=== PATIENT | female | born 1995 | race Caucasian/White ===

== ENCOUNTER 2018-02-26 13:04 | Emergency (ER) | payer BC, OTHER ==
[2018-02-26] MEDS ORDERED: Triple Antibiotic Oint 1 GM Packet ONE (13:33)
[2018-02-26] MEDS ORDERED: Cephalexin 500 MG CAP ONE (13:33)
[2018-02-26] MEDS ORDERED: Sulfameth/Trimethoprim DS 800-160mg TAB ONE (13:33)
== END 2018-02-26 13:40 | disposition home or self-care (01) ==
LOC: MADERS 13:04
DX: S70.261A Insect bite (nonvenomous), right hip, initial encounter (principal); L03.115 Cellulitis of right lower limb; F17.210 Nicotine dependence, cigarettes, uncomplicated
CPT/HCPCS: 99283